=== PATIENT | female | born 1995 | race Caucasian/White ===

== ENCOUNTER 2022-10-12 13:22 | Emergency (ER) | payer MEDICAID, SELFPAY ==
[2022-10-12 13:27] VITALS: BP 117/74; PULSE 87; RESP 14; TEMP 36.7; O2SAT 97; BMI 25.9
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
--- NOTE | 2022-10-13 09:41 | DCPLANNER ---
Addendum entered by Lu Hernandez 10/19/22 09:56: Patient had a follow up appointment scheduled with [facility] - patient did attend appointment. Original Note: digital program manager had message to schedule a follow up appointment for patient with [employer] [employer]. digital program manager sent patients information to the front office staff at [facility]. Patients information will be printed and reviewed. Clinic will call patient with appointment information.
== END 2022-10-12 18:31 | disposition home or self-care (01) ==
PROVIDERS: Emergency Provider Emergency Medicine; PCP Nurse Practitioner
DX: O26.891 Other specified pregnancy related conditions, first trimester (principal); Z3A.00 Weeks of gestation of pregnancy not specified; Z63.0 Problems in relationship with spouse or partner
CPT/HCPCS: 99283

== ENCOUNTER → 2022-10-15 09:24 | Outpatient (BNVA) | payer MEDICAID, SELFPAY | PROVIDERS: PCP Nurse Practitioner; Visit Provider Nurse Practitioner Women's Health | DX: Z34.90 Encounter for supervision of normal pregnancy, unspecified, unspecified trimester (principal) | CPT/HCPCS: 80307; 81000; 81025; 82950; 85025; 86592; 86762; 86803; 86850; 86900; 87086; 87340; 87806 ==

== ENCOUNTER → 2022-10-20 14:18 | Outpatient (BNVA) | payer MEDICAID, SELFPAY | PROVIDERS: PCP Nurse Practitioner; Visit Provider Obstetrics & Gynecology | DX: Z36.87 Encounter for antenatal screening for uncertain dates (principal) | CPT/HCPCS: 76801 ==

== ENCOUNTER → 2022-10-25 13:06 | Outpatient (BNVA) | payer SELFPAY | PROVIDERS: PCP Nurse Practitioner; Visit Provider Obstetrics & Gynecology | DX: O09.90 Supervision of high risk pregnancy, unspecified, unspecified trimester (principal); Z3A.00 Weeks of gestation of pregnancy not specified | CPT/HCPCS: 81000 ==

== ENCOUNTER → 2022-11-22 13:55 | Outpatient (BNVA) | payer SELFPAY | PROVIDERS: PCP Nurse Practitioner; Visit Provider Obstetrics & Gynecology | DX: O09.90 Supervision of high risk pregnancy, unspecified, unspecified trimester (principal); Z3A.16 16 weeks gestation of pregnancy | CPT/HCPCS: 81000 ==

== ENCOUNTER → 2022-12-14 12:18 | Outpatient (BNVA) | payer MEDICAID, SELFPAY | PROVIDERS: PCP Nurse Practitioner; Visit Provider Obstetrics & Gynecology | DX: Z34.90 Encounter for supervision of normal pregnancy, unspecified, unspecified trimester (principal) | CPT/HCPCS: 76805 ==

== ENCOUNTER → 2023-01-10 10:34 | Outpatient (BNVA) | payer BC, MEDICAID, SELFPAY | PROVIDERS: PCP Nurse Practitioner; Visit Provider Obstetrics & Gynecology | DX: O09.90 Supervision of high risk pregnancy, unspecified, unspecified trimester (principal); Z3A.24 24 weeks gestation of pregnancy | CPT/HCPCS: 76816; 81000 ==

== ENCOUNTER → 2023-02-07 10:14 | Outpatient (BNVA) | payer BC, MEDICAID, SELFPAY | PROVIDERS: PCP Nurse Practitioner; Visit Provider Obstetrics & Gynecology | DX: O09.90 Supervision of high risk pregnancy, unspecified, unspecified trimester (principal); Z3A.28 28 weeks gestation of pregnancy | CPT/HCPCS: 82950; 84315; 85025 ==

== ENCOUNTER → 2023-03-21 11:55 | Outpatient (BNVA) | payer SELFPAY | PROVIDERS: PCP Nurse Practitioner; Visit Provider Obstetrics & Gynecology | DX: O09.90 Supervision of high risk pregnancy, unspecified, unspecified trimester (principal); F15.11 Other stimulant abuse, in remission; Z3A.34 34 weeks gestation of pregnancy | CPT/HCPCS: 81000 ==

== ENCOUNTER → 2023-04-05 15:34 | Outpatient (BNVA) | payer BC, MEDICAID, SELFPAY | PROVIDERS: PCP Nurse Practitioner; Visit Provider Obstetrics & Gynecology | DX: O09.90 Supervision of high risk pregnancy, unspecified, unspecified trimester (principal); Z3A.36 36 weeks gestation of pregnancy | CPT/HCPCS: 81000; 87081 ==

== ENCOUNTER 2023-04-12 14:55 | Outpatient (CLI) | payer BC, MEDICAID, SELFPAY ==
[2023-04-12 15:16] VITALS: BP 130/81; PULSE 94
[2023-04-12 15:20] VITALS: BMI 35.5
[2023-04-12 15:36] VITALS: BP 123/77; PULSE 80
[2023-04-12 15:56] VITALS: BP 125/76; PULSE 83
== END 2023-04-12 16:25 | disposition home or self-care (01) ==
LOC: OPOB 14:58 → OBGYN 14:59
PROVIDERS: PCP Nurse Practitioner; Visit Provider Obstetrics & Gynecology
DX: O26.899 Other specified pregnancy related conditions, unspecified trimester (principal); Z3A.00 Weeks of gestation of pregnancy not specified
CPT/HCPCS: 59025; 81000; 99211

== ENCOUNTER → 2023-04-19 10:37 | Outpatient (BNVA) | payer BC, MEDICAID, SELFPAY | PROVIDERS: PCP Nurse Practitioner; Visit Provider Obstetrics & Gynecology | DX: O09.90 Supervision of high risk pregnancy, unspecified, unspecified trimester (principal); Z3A.38 38 weeks gestation of pregnancy | CPT/HCPCS: 81000 ==

== ENCOUNTER → 2023-05-02 10:30 | Outpatient (BNVA) | payer MEDICAID, SELFPAY | PROVIDERS: PCP Nurse Practitioner; Visit Provider Obstetrics & Gynecology | DX: O09.93 Supervision of high risk pregnancy, unspecified, third trimester (principal); Z3A.40 40 weeks gestation of pregnancy | CPT/HCPCS: 76819; 81000 ==

== ENCOUNTER 2023-05-04 00:57 | Inpatient (IN) | payer BC, MEDICAID, SELFPAY ==
[2023-05-04] VITALS (31 sets, daily range): BP systolic 98–137; BP diastolic 51–96; PULSE 51–73; RESP 16–18; TEMP 35.6–36.2; BMI 37.4
[2023-05-04 02:34] LABS: Basophils % 0.2 %; Eosinophils # 0.2 10^3/uL (0.0-0.8); Eosinophils % 2.4 %; Hematocrit 36.1 % (36-47); Lymphocytes # 1.8 10^3/uL (0.8-4.8); Lymphocytes % 20.1 %; Mean Corpuscular HGB Conc 32.7 g/dL (30-55); Mean Corpuscular Hemoglobin 30.9 pg (27-33); Mean Corpuscular Volume 94.5 fl (85-98); Mean Platelet Volume 11.1 fL (7.4-10.4); Monocytes # 0.8 10^3/uL (0.2-0.9); Monocytes % 8.2 %; Neutrophils # 6.17 10^3/uL (1.8-7.7); Neutrophils % 67.9 %; Nucleated Red Blood Cells % 0.3 %; Platelet Count 220 10^3/cmm (157-399); Red Blood Count 3.82 10^6/uL (3.85-5.65)
[2023-05-04] MEDS: miSOPROStol 100 mcg tablet 25 MCG VAGINAL ×2 (04:50→10:04)
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
--- NOTE | 2023-05-04 10:15 | P.PN_ITS ---
OFFICE CLIN ASST Subjective 2 Subjective: Interval history: Fetus reassuring Not feeling any UCs Cx: unchanged at closed / long Plan Cytotec 25 ug intravaginal, second dose Labor: Amniotic Membrane Status: Intact Monitor Mode: Palpation C ontraction Pattern: Regular Status: Category I Vitals/I&O/Wt Last Vital Signs Temp 97.2 F L 05/04/23 16:01 Pulse 61 05/04/23 17:01 Resp 18 05/04/23 15:17 BP 127/60 05/04/23 17:01 O2 Del Method Room Air 05/04/23 02:11 Weight last 48 hrs Weight 218 lb Weight 218 lb Data 05/04/23 01:58 A&P Assessment and plan (1) Encounter for induction of labor: Plan Cytotec 25 ug intravaginal, second dose Attestations 2 Medical Necessity Statement*: patient at 40 w 4 d; admitted for labor induction Coding Level of Care Code Acute Code for Chg Fwd Diagnoses Encounter for induction of labor Z34.90 Time Spent (min) 20
--- NOTE | 2023-05-04 15:50 | P.PN_ITS ---
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 Subjective: Interval history: Fetus reassuring Cx: FT / 75% / -3 / posterior Received two doses of Cytotec Plan start pitocin Labor: Amniotic Membrane Status: Intact Monitor Mode: Palpation C ontraction Pattern: Regular Status: Category I Vitals/I&O/Wt Last Vital Signs Temp 97.2 F L 05/04/23 16:01 Pulse 61 05/04/23 17:01 Resp 18 05/04/23 15:17 BP 127/60 05/04/23 17:01 O2 Del Method Room Air 05/04/23 02:11 Weight last 48 hrs Weight 218 lb Weight 218 lb Data 05/04/23 01:58 Attestations 2 Medical Necessity Statement*: patient at 40 w 4 d, admitted for induction of labor Coding Level of Care Code Acute Code for Chg Fwd Time Spent (min) 20
[2023-05-04] MEDS: acetaminophen 325 mg Tablet 650 MG PO (18:19)
[2023-05-04] MEDS: hyDROXYzine 25 mg Capsule 50 MG PO (18:19)
[2023-05-04] MEDS: oxytocin 30 UNIT/500 ML BAG IV (20:25)
[2023-05-04] MEDS: dextrose 5%-lactated ringers 1,000 ML 125 ML IV (20:25)
[2023-05-04] MEDS: fentaNYL 50 mcg/mL INJ 2mL IVP ×2 (21:08→23:26)
[2023-05-04] MEDS: lactated ringers 1,000 ML 999 ML IV (23:30)
[2023-05-05] VITALS (231 sets, daily range): BP systolic 94–150; BP diastolic 50–87; PULSE 44–102; RESP 15–16; TEMP 37.1; O2SAT 89–100; BMI 37.4
[2023-05-05] MEDS: lactated ringers 1,000 ML 999 ML IV ×2 (00:50→04:11)
--- NOTE | 2023-05-05 00:59 | P.ANESASSM_ITS ---
Pre-Anesthetic Assessment Height/Weight: Height 1.63 m Weight 98.883 kg Temp Pulse Resp BP Pulse Ox O2 Del Method 97.2 F L 69 17 146/67 100 Room Air 05/04/23 16:01 05/05/23 00:54 05/04/23 23:26 05/05/23 00:54 05/05/23 00:54 05/04/23 02:11 Preop Diagnosis: Labor pain LASHAY Was Beta Sandip taken within 24 hours: N/A Was Clonidine taken within 24 hours: N/A Social Tobacco Exam alert, oriented x 3, clear to auscultation bilaterally and regular rate & rhythm Airway Submandibular: within normal limits Cervical ROM: within normal limits Mallampati: Class II Dentition: full History/ROS No significant history except as noted and No significant complaints Pulmonary None reported CV/HEM None reported None reported Hepatic None reported GI Gastroesophageal Reflux Disease Metabolic Diabetes Mellitus Juvenile diabetes. Diet controlled now [facility] None reported Neuropsych Seizure Last Sz in july 2022 Anesthetic Plan ASA status: 2 Anesthesia: Anesthesia Evaluation and Regional (specify below) (LASHAY) Risk of > 500 ml blood loss (7ml/kg in children): No Medications/Allergies Home Medications Medication Instructions Recorded Confirmed Last Taken Type prenat.vits,jaimie,wxk-ifgn-elqln 1 tab PO DAILY #90 tabs 12/20/22 05/02/23 04/12/23 Rx famotidine 20 mg tablet 20 mg PO BID #60 tabs 02/21/23 05/02/23 Unknown Rx Allergies Allergy/AdvReac Type Severity Reaction Status Date / Time morphine Allergy unknown Verified 05/02/23 11:46 Current Medications Generic Name Dose Route Start Last Admin Trade Name Freq PRN Reason Stop Dose Admin Acetaminophen 650 mg 05/04/23 02:12 05/04/23 18:19 Acetaminophen 325 Mg Tablet PO 650 mg Q6H PRN Administration Mild pain or temp > 100.4 Fentanyl 25 - 100 mcg 05/04/23 02:12 05/04/23 23:26 Fentanyl 50 Mcg/Ml Inj 2ml IVP 50 mcg Q1H PRN Administration SEVERE PAIN Hydroxyzine Pamoate 50 mg 05/04/23 02:12 05/04/23 18:19 Hydroxyzine 25 Mg Capsule PO 50 mg QID PRN Administration sleep, agitation or itching Dextrose/Lactated Ringer's 1,000 mls @ 125 mls/hr 05/04/23 02:15 05/04/23 20:25 Dextrose 5%-Lactated Ringers IV 125 mls/hr .Q8H FOREST Administration Oxytocin 30 unit in 500 mls @ 1 mls/hr 05/04/23 20:30 05/04/23 20:25 Pitocin IV 1 milliunit/min .Q24H FOREST 1 mls/hr Administration Protocol 1 MILLIUNIT/MIN Lactated Ringer's 1,000 mls @ 999 mls/hr 05/04/23 23:36 05/05/23 00:50 Lactated Ringers IV 999 mls/hr .Q1H1M PRN Administration See label comments PFSH Anesthesia Medical History Seizure july 2022 was her last seizure; she was evaluated in [place] in 2020; has never been on medication; has a service dog PTSD (post-traumatic stress disorder) Sleep apnea Anxiety Diabetes reported from [age] y/o; now diet regulated No pertinent past medical history neghx:htn,thyroid,dvt/pe PCP: [facility] Surgical History History of oral surgery Family History Mother Diabetes Hypertension Seizure disorder Breast cancer, Onset Age: 28 lumpectomy with chemo-- DCIS; 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 Thyroid disease Grandfather Dementia Colon cancer MGGF Family/Other Breast cancer Maternal Aunt x2 Family/Other Ovarian cancer 3 Aunts/Maternal Grandmother Colon cancer MGM Denies family history of Heart disease Uterine cancer Stroke Female Reproductive History : 1 Data Anesthesia 05/04/23 01:58 Short CBC 05/04/23 Range/Units 01:58 WBC 9.10 (3.29-11.43) 10^3/uL Hgb 11.80 (11.27-16.99) g/dL Hct 36.1 (36-47) % MCV 94.5 (85-98) fl Plt Count 220 (157-399) 10^3/cmm Neut % (Auto) 67.9 % Neut # (Auto) 6.17 (1.8-7.7) 10^3/uL Blood Bank 12/20/23 02:56 Blood Type A Positive Rho(D) Type Rh positive Antibody Screen Negative Cardiac Studies: 2 No Data to Display
--- NOTE | 2023-05-05 01:02 | ANES.PROC ---
Anesthesia Procedures Procedure/Date: 05/05/23 Epidural: Time Out Performed: Yes Consents Signed: Procedure Consent Consent: requested by attending/covering physician and from patient Lumbar Level: L3-L4 Epidural position: sitting Epidural procedure: sterile prep of area, 1% lidocaine to numb the area, 18 g needle, neg for paresthesia, test dose given, 1.5% xylocaine 1:200k epi (5cc), 0.2% Ropivacaine bolus ml (4cc and Fentanyl 100mcg), placed PCEA, no systemic response, sterile dressing applied and 0.2% Ropiavacaine @ mls/hr (10cc/hour) Additional Comments: CASIMIRO at 6cm. Cath placed 2.5 cm into epidural space. Pt tolerated well
--- NOTE | 2023-05-05 02:05 | PC.NURSE ---
Pitocin discontinued due to FHT.
--- NOTE | 2023-05-05 03:15 | P.PN_ITS ---
[employer] Subjective 2 Subjective: Interval history: External monitor: heart tracing now with persistent and repetitive late decelerations Not resolved with position change, O2 Cx: 1-2 cm / 50% / - 3 / posterior Patient is primigravida and remote from delivery With very concerning heart tracing Recommend for delivery Procedure and risks explained to patient, including, but not limited to, risks of infection, bleeding, injury to internal organs, anesthesia, blood transfusions Patient understands and wants to proceed Will prepare for Labor: Station: -3 Amniotic Membrane Status: Intact Monitor Mode: External Contraction Pattern: Absent Status: Category I Vitals/I&O/Wt Last Vital Signs Temp 98.4 F 05/06/23 18:50 Pulse 86 05/06/23 18:50 Resp 16 05/06/23 18:50 BP 122/78 05/06/23 18:50 Pulse Ox 99 05/06/23 18:50 O2 Del Method Room Air 05/06/23 16:30 Weight last 48 hrs Weight 218 lb Physical Exam 2 Urinary Catheter Management: Bragg: Cath Placed During This Visit: yes, but has since been removed by the nurse Reason for Continuing Indwelling Catheter: Decision to DC Catheter Urinary Catheter Date of Insertion: 05/05/23 Urinary Catheter Time of Insertion: 03:15 Date Urinary Catheter Removed: 05/06/23 Time Urinary Catheter Discontinued: 00:30 Data 05/05/23 18:19 A&P Assessment and plan (1) : 40 w 5 d (2) Encounter for induction of labor: admitted for labor induction (3) distress: Cx at 1 cm heart tracing with repetitive late decelerations plan for delivery Attestations 2 Medical Necessity Statement*: patient at 40 w 5 d, admitted for labor induction, now with intolerance of labor Coding Level of Care Code Acute Code for Chg Fwd Diagnoses Z34.90 Encounter for induction of labor Z34.90 distress Time Spent (min) 60
[2023-05-05] MEDS: citric acid-sodium citrate 30 mL UDC PO (04:10)
[2023-05-05] MEDS: metoclopramide 5 mg/mL SDV 2 mL 10 MG IVP (04:10)
--- NOTE | 2023-05-05 04:50 | PM.OP ---
Operative Report Date of procedure: May 05, 2023 Pre-op diagnosis: 40 w 5 d induction of labor cervix at 1 cm heart tracing with repetitive late decelerations Post-op diagnosis: 40 w 5 d induction of labor cervix at 1 cm heart tracing with repetitive late decelerations fetus with tight nuchal cord x three Post-op findings: clear amniotic fluid fetus with tight nuchal cord x three normal uterus, tubes, and ovaries Procedure done: primary low-transverse Implants: none Specimens removed/disposition: placenta and cord, discarded cord gases and blood, sent to lab Surgeon: Gerald Patton MD Estimated blood loss (mL): 700 Complications: none Condition: stable Disposition: floor Brief History: 27 y.o. at 40 w 5 d admitted for induction of labor Cx at 1 cm heart tracing with repetitive late decelerations Procedure: The patient was taken to the operating room and placed supine in the left lateral tilt position. Epidural anesthesia and a rouse catheter were already in place. Time-out verification was carried Out. The abdomen was prepped and draped in the usual sterile fashion. A Pfannenstiel incision was made and carried down through skin and subcutaneous tissue and fascia. The fascial incision was extended laterally with Godwin scissors. The fascia was from the underlying rectus muscles. The rectus muscles were split in the midline. The peritoneum was entered bluntly avoiding underlying organs. A bladder flap was created. An Abdullahi-O retractor was placed. A low-transverse uterine incision was made and extended laterally and bluntly avoiding the uterine vessels. Clear amniotic fluid was encountered. The baby was delivered in cephalic presentation atraumatically. Tight nuchal cord x three noted and reduced. The baby was suctioned, the cord was clamped and cut and the baby was handed to pediatric staff. A segment of cord was obtained for cord gas, cord blood was obtained. The placenta was manually removed intact. The uterine cavity was bluntly curetted with wet laps. The uterine incision was then closed with a continuous interlocking stitch of O-chromic. Adequate hemostasis was seen. Inspection of the uterine incision again showed good hemostasis. The fascia was then closed with a continuous stitch of O-Vicryl. The subcutaneous tissue was irrigated and inspected for hemostasis. The skin was then closed with Insorb paola. Postoperative condition: stable EBL: 700 cc Complications: none Sponge and instruments counts correct x two
[2023-05-05] MEDS: ketorolac 30 mg/mL INJ IVP ×3 (12:37→22:44)
[2023-05-05] MEDS: docusate sodium 100 mg Capsule PO (18:03)
[2023-05-05] MEDS: ferrous sulfate EC 325 mg Tablet PO (18:04)
[2023-05-05 18:32] LABS: Mean Corpuscular HGB Conc 33.8 g/dL (30-55); Mean Corpuscular Hemoglobin 30.3 pg (27-33); Mean Corpuscular Volume 89.8 fl (85-98); Mean Platelet Volume 10.8 fL (7.4-10.4); Platelet Count 213 10^3/cmm (157-399); Red Blood Count 3.23 10^6/uL (3.85-5.65); Red Cell Distribution Width 14.1 % (12.1-15.1); White Blood Count 11.71 10^3/uL (3.29-11.43)
[2023-05-06 04:30] VITALS: BP 124/62; PULSE 67; RESP 16; TEMP 36.6; O2SAT 96
--- NOTE | 2023-05-06 08:45 | ANE.PACU2 ---
Inpatient post-anesthesia follow up: Airway intact: Yes Vital signs: Temperature 97.8 F Pulse Rate 67 Respiratory Rate 16 Blood Pressure 124/62 Pulse Oximetry 96 Oxygen Delivery Me thod Room Air Oxygen Flow Rate Fraction of Inspir ed Oxygen Hydration adequate: Yes Nausea and vomiting: No Pain level: 2 Mental status: Baseline Additional Comments: Anes start 05/05/23 0039 Anes end 05/05/23 9116
[2023-05-06] MEDS: docusate sodium 100 mg Capsule PO (08:49)
[2023-05-06] MEDS: ferrous sulfate EC 325 mg Tablet PO (08:49)
[2023-05-06] MEDS: prenatal vitamin Capsule 1 CAP PO (08:49)
[2023-05-06 10:00] VITALS: BP 135/87; PULSE 72; RESP 16; TEMP 36.9; O2SAT 96
--- NOTE | 2023-05-06 14:40 | P.PN_ITS ---
[employer] Subjective 2 Subjective: Interval history: May 06, 2023, 1440 no c/o mild incisional pain, relieved with pain medications eating, voiding, ambulating well no bleeding wants to go home without any difficulties Labor: Station: -3 Amniotic Membrane Status: Intact Monitor Mode: External Contraction Pattern: Absent Status: Category I Vitals/I&O/Wt Last Vital Signs Temp 98.4 F 05/06/23 18:50 Pulse 86 05/06/23 18:50 Resp 16 05/06/23 18:50 BP 122/78 05/06/23 18:50 Pulse Ox 99 05/06/23 18:50 O2 Del Method Room Air 05/06/23 16:30 Weight last 48 hrs Weight 218 lb Physical Exam 2 Narrative: comfortable afebrile, VS normal Abd: soft, nontender wound clean and dry Ext: normal Urinary Catheter Management: Bragg: Cath Placed During This Visit: yes, but has since been removed by the nurse Reason for Continuing Indwelling Catheter: Decision to DC Catheter Urinary Catheter Date of Insertion: 05/05/23 Urinary Catheter Time of Insertion: 03:15 Date Urinary Catheter Removed: 05/06/23 Time Urinary Catheter Discontinued: 00:30 Data 05/05/23 18:19 A&P Assessment and plan (1) Delivery by section of full-term infant: POD #1 primary low-transverse doing well discharge home today instructions and precautions given call/return if fever, chills, nausea, vomiting, headaches, abdominal pain, bleeding, inability to void, swelling, leg pain; feelings of depression or mood changes; wound redness, swelling, or discharge f/u in 1 week or PRN Attestations 2 Medical Necessity Statement*: patient s/p primary low-transverse , plan discharge home today Coding Level of Care Code Acute Code for Chg Fwd Diagnoses Delivery by section of full-term infant O82 Time Spent (min) 25
[2023-05-06] MEDS: ibuprofen 800 mg tablet PO (14:52)
[2023-05-06 16:30] VITALS: BP 122/78; PULSE 86; RESP 16; TEMP 36.9; O2SAT 99
[2023-05-06 18:50] VITALS: BP 122/78; PULSE 86; RESP 16; TEMP 36.9; O2SAT 99
--- NOTE | 2023-05-07 01:24 | PM.OBGYDC ---
Discharge Providers RE[employer]ERATION UNIT REPAIRER Date of Admission: 05/04/23 00:57 Date of Discharge: 05/06/23 Attending Provider at Admission: Gerald Patton MD Attending Provider at Discharge: Gerald Patton MD Consults: none Primary REFRIGERATION UNIT REPAIRER: Gerald Patton MD Primary Care Provider: JOSE Zambrano Diagnoses at Discharge Discharge Diagnosis (1) Delivery by section of full-term : Details from hospital stay: patient admitted at 40 w 4 d for induction of labor patient progressed to 1.5 cm began to have repetitive late decelerations primary low-transverse was performed fetus had tight nuchal cord x three patient and baby did well postoperatively was discharged home on first postperative day Status: Acute Reason for Visit Reason for Visit: Induction of Labor Information Peripartum Data: Delivery Method: Physical Exam Narrative: comfortable afebrile, VS normal Abd: soft, nontender wound clean and dry Ext: normal Urinary Catheter Management: Bragg: Cath Placed During This Visit: yes, but has since been removed by the nurse Reason for Continuing Indwelling Catheter: Decision to DC Catheter Urinary Catheter Date of Insertion: 05/05/23 Urinary Catheter Time of Insertion: 03:15 Date Urinary Catheter Removed: 05/06/23 Time Urinary Catheter Discontinued: 00:30 History History History 1 Term Miscarriages/Ectopic Living Children 0 Discharge Data Studies Completed and Pending Laboratory Results WBC 11.71 10^3/uL (3.29-11.43) H 05/05/23 18:19 RBC 3.23 10^6/uL (3.85-5.65) L 05/05/23 18:19 Hgb 9.80 g/dL (11.27-16.99) L 05/05/23 18:19 Hct 29.0 % (36-47) L 05/05/23 18:19 MCV 89.8 fl (85-98) 05/05/23 18:19 MCH 30.3 pg (27-33) 05/05/23 18:19 MCHC 33.8 g/dL (30-55) 05/05/23 18:19 RDW 14.1 % (12.1-15.1) 05/05/23 18:19 Plt Count 213 10^3/cmm (157-399) 05/05/23 18:19 MPV 10.8 fL (7.4-10.4) H 05/05/23 18:19 Neut % (Auto) 67.9 % 05/04/23 01:58 Lymph % (Auto) 20.1 % 05/04/23 01:58 Eddy % (Auto) 8.2 % 05/04/23 01:58 Eos % (Auto) 2.4 % 05/04/23 01:58 Baso % (Auto) 0.2 % 05/04/23 01:58 Neut # (Auto) 6.17 10^3/uL (1.8-7.7) 05/04/23 01:58 Lymph # (Auto) 1.8 10^3/uL (0.8-4.8) 05/04/23 01:58 Eddy # (Auto) 0.8 10^3/uL (0.2-0.9) 05/04/23 01:58 Eos # (Auto) 0.2 10^3/uL (0.0-0.8) 05/04/23 01:58 Baso # (Auto) 0.0 10^3/uL (0.0-0.1) 05/04/23 01:58 Nucleated RBC % (auto) 0.3 % 05/04/23 01:58 Nucleated RBCs # 0.0 /100WBC 05/04/23 01:58 Blood Type A Positive 05/04/23 02:56 Rho(D) Type Rh positive 05/04/23 02:56 Antibody Screen Negative 05/04/23 02:56 Procedures Performed induction of labor primary low-transverse Vitals Last Vital Signs Temp 98.4 F 05/06/23 18:50 Pulse 86 05/06/23 18:50 Resp 16 05/06/23 18:50 BP 122/78 05/06/23 18:50 Pulse Ox 99 05/06/23 18:50 O2 Del Method Room Air 05/06/23 16:30 Results Labs OB ([facility]): Obstetrics US 01/10/23 Obstetrics US/Biophysical Profile 05/02/23 Blood Type A Positive 05/04/23 Antibody Screen Negative 05/04/23 Hct 29.0 % (36-47) L 05/05/23 Hgb 9.80 g/dL (11.27-16.99) L 05/05/23 Rho(D) Type Rh positive 05/04/23 Plt Count 213 10^3/cmm (157-399) 05/05/23 Hep Bs Antigen Non-reactive (Nonreactive) 10/15/22 Hepatitis C Antibody Non-reactive (Nonreactive) 10/15/22 Rubella IgG Antibody 43.5 IU/mL (0.0-10.0) H 10/15/22 RPR Nonreactive (Nonreactive) 10/15/22 HIV 1&2 Ab & HIV 1 Ag Non-reactive (Non-Reactiv) 10/15/22 Cystic Fibrosis Screen Negative 10/15/22 Gest Glucose Tolerance 123 mg/dL (70-139) 02/07/23 HCG, Qual Positive (Negative) H 10/15/22 Urine Opiates Screen Negative ng/mL (Negative) 10/15/22 Ur Barbiturates Screen Negative ng/mL (Negative) 10/15/22 Ur Phencyclidine Scrn Negative ng/mL (Negative) 10/15/22 Ur Amphetamines Screen Negative ng/mL (Negative) 10/15/22 U Benzodiazepines Scrn Negative ng/mL (Negative) 10/15/22 Urine Cocaine Screen Negative ng/mL (Negative) 10/15/22 U Marijuana (THC) Screen Negative ng/mL (Negative) 10/15/22 Discharge Plan Discharge Patient Disposition: Home Condition: Stable Prescriptions: Continued prenat.vits,jaimie,[id number] Tablet 1 tab PO DAILY Qty: 90 2RF famotidine 20 mg tablet 20 mg PO BID Qty: 60 2RF Discharge Orders: Discharge Order (Routine); Ordered 05/06/23 Ordered By: Gerald Patton Referrals: Gerald Patton MD [Physician] - 05/11/23 1:00 pm (You have an appointment with Dr. Patton on at 1:00 pm.) Discharge Diet: Usual diet Discharge Activity: Increase activity as tolerated Patient Instructions: Depression (DC), Bleeding (DC), Preeclampsia and Eclampsia After Delivery (GEN), (DC), COVID-19 and (GEN), Hemorrhage (DC), OB Discharge Report, OB Food/Drug Interaction Guide, OB Care at Home, Opioid Safety, OB Home Care, Abnormal Bleeding Discharge Attestations RE[employer]ATION UNIT REPAIRER Time Spent in Discharge Care*: less than 30 min Coding Level of Care Code Acute Code for Chg Fwd Diagnoses Delivery by section of full-term infant O82 Time Spent (min) 25
== END 2023-05-06 18:30 | disposition home or self-care (01) | DRG 786 ==
LOC: OPOB 00:57 → OBGYN 00:57
PROVIDERS: Admitting Provider Obstetrics & Gynecology; PCP Nurse Practitioner; Visit Provider Obstetrics & Gynecology
PROC: 10D00Z1 Extraction of Products of Conception, Low, Open Approach (ICD-10-PCS; CPT 59514; principal; 2023-05-05 04:15)
DX: O48.0 Post-term pregnancy (principal); O24.12 Pre-existing type 2 diabetes mellitus, in childbirth; O99.354 Diseases of the nervous system complicating childbirth; Z3A.40 40 weeks gestation of pregnancy; Z37.0 Single live birth; O76 Abnormality in fetal heart rate and rhythm complicating labor and delivery; O69.1XX0 Labor and delivery complicated by cord around neck, with compression, not applicable or unspecified; E11.9 Type 2 diabetes mellitus without complications; O99.344 Other mental disorders complicating childbirth; F43.10 Post-traumatic stress disorder, unspecified; F41.9 Anxiety disorder, unspecified; R56.9 Unspecified convulsions; O99.892 Other specified diseases and conditions complicating childbirth; G47.30 Sleep apnea, unspecified
CPT/HCPCS: 36415; 51702; 59025; 85025; 85027; 86850; 86900; 96374; 96376; J1100; J1200; J1885; J2274; J2590; J2765; J2795; J3010; J7120; J7121